=== PATIENT | female | born 1970 | race African-American/Black ===

== ENCOUNTER 2024-03-19 15:57 | Outpatient (CLI) | payer OTHER, SELFPAY ==
[2024-03-19 16:25] LABS: Alanine Aminotransferase 14 U/L (6-35); Albumin Level 4.5 g/dL (3.5-5.1); Alkaline Phosphatase 112 U/L (38-126); Aspartate Amino Transferase 21 U/L (14-36); Bilirubin,Total 0.5 mg/dL (0.2-1.3)
[2024-03-20 16:58] LABS: FSH 58.9 mIU/mL
== END 2024-03-19 15:58 | disposition home or self-care (01) ==
LOC: ANHLAB 15:59
PROVIDERS: PCP Internal Medicine; Visit Provider Obstetrics & Gynecology
DX: N95.1 Menopausal and female climacteric states (principal); Z79.899 Other long term (current) drug therapy
CPT/HCPCS: 36415; 80076; 83001

== ENCOUNTER 2024-05-11 10:47 | Outpatient (CLI) | payer OTHER, SELFPAY ==
--- NOTE | ~2024-05-11 | US_ITS ---
US pelvic complete w TV Ordering provider: Deni Eason MD History: . 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 . Comparison: None. Technique: Transabdominal and endovaginal ultrasound of the pelvis (Doppler ultrasound interrogation techniques used as needed for this exam.) FINDINGS: CERVIX: Normal. UTERUS: Measures 9.6x 5.8x 5.9 cm in length which is within normal limits and is anteverted. Fibroid s are seen with the largest measures 3.3 x 2.9 x 2.6 cm. ENDOMETRIUM: Not well seen. IUD is noted. CUL DE SAC: No free fluid. RIGHT OVARY: Not demonstrated. LEFT OVARY: Not demonstrated. ADNEXA: Normal. No mass. IMPRESSION: Multiple fibroids. Otherwise, normal pelvic ultrasound. Reviewed, dictated and finalized at location A.
== END 2024-05-11 10:48 ==
LOC: GOSHIMG 10:48
PROVIDERS: PCP Internal Medicine; Visit Provider Obstetrics & Gynecology
DX: N85.2 Hypertrophy of uterus (principal); D25.9 Leiomyoma of uterus, unspecified
CPT/HCPCS: 76830; 76856

== ENCOUNTER 2024-08-29 08:01 | Outpatient (CLI) | payer OTHER, SELFPAY ==
--- NOTE | ~2024-08-29 | MM_ITS ---
EXAMINATION: MM screening marie BI w howard HISTORY: Screening TECHNIQUE: Craniocaudal and mediolateral oblique 3-D tomosynthesis images were obtained and synthetic 2-D images were generated. CAD analysis was submitted and interpreted. COMPARISON: No prior mammogram is available for comparison at this institution. BREAST PARENCHYMAL COMPOSITION: Dense: The breasts are heterogeneously dense, which may obscure small masses FINDINGS: There is a partially obscured right periareolar breast mass in the upper inner quadrant of the right breast. No mammographic evidence for malignancy in the left breast. IMPRESSION: 1. Right breast mass. 2. Additional mammographic views and possible breast ultrasound are recommended. BI-RADS Category 0: Incomplete: Needs additional imaging evaluation. Reviewed, dictated and finalized at location B. STRIAL ANALYST IMPRESSION: 1. Right breast mass. 2. Additional mammographic views and possible breast ultrasound are recommended . BI-RADS Category 0: Incomplete: Needs additional imaging evaluation.
== END 2024-08-29 08:02 | disposition home or self-care (01) ==
LOC: MICIMG 08:02
PROVIDERS: PCP Obstetrics & Gynecology; Visit Provider Internal Medicine
DX: Z12.31 Encounter for screening mammogram for malignant neoplasm of breast (principal); N63.12 Unspecified lump in the right breast, upper inner quadrant
CPT/HCPCS: 77063; 77067

== ENCOUNTER 2025-04-12 15:28 | Outpatient (CLI) | payer OTHER, SELFPAY ==
--- NOTE | ~2025-04-12 | US_ITS ---
EXAM: PELVIC ULTRASOUND HISTORY: D25.9 - Leiomyoma of uterus, unspecified COMPARISON: 05/11/2024. FINDINGS: UTERUS: 8.9 x 4.8 x 6.0 cm. The endometrial complex is obscured by the multiple fibroids. Multiple fibroids are redemonstrated. The largest is within the posterior body of the uterus in the intramural position measuring 30 x 26 x 29 mm (unchanged from prior). An additional submucosal fibroid is identified within the mid body of the uterus measuring 26 x 24 x 28 mm. Within the fundus of the uterus, in the subserosal position is an additional fibroid measuring 29 x 2 9 x 26 mm. An additional subserosal fibroid is identified within the fundus measuring 23 x 20 x 23 mm. Intrauterine device is described and visualized on live interrogation. RIGHT OVARY: The right ovary is unremarkable in echogenicity and size measuring 2.5 x 1.5 x 3.0 cm. Dopplerable flow is identified. LEFT OVARY: Despite prolonged interrogation, the left ovary was not visualized. Trace free fluid is identified within the posterior cul-de-sac IMPRESSION: Fibroid uterus. Despite prolonged interrogation, the left ovary was not visualized. Unremarkable evaluation of the right ovary. Trace free fluid within the posterior cul-de-sac. Reviewed, dictated and finalized at location A.
--- OUTSIDE RECORDS SUMMARY | 2025-04-12 16:37 | XMS_ITS | Encounter Summary ---
Author Organization [facility] Address [address] [facility] [place] [address] Care Team Providers Care Flame Cutting Machine Operator Name Role Phone Nimisha Nichols MD Primary Care Provider +1- [phone] Encounter Details Date Type Department Care Team (Late st Contact Info) Description 08/04/2012 [facility] Social History Tobacco Use Types Packs/Day Years Used Date Smoking Tobacco: Never Smokeless Tobacco: Never Alcohol Use Standard Drinks/Week Comments Yes 0 (1 standard drink = 0.6 oz pur e alcohol) Comments No Sex and Gender Information Value Date Recorded Sex Assigned at Not on file 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
--- OUTSIDE RECORDS SUMMARY | 2025-04-12 16:37 | XMS_ITS | Referral Summary ---
Author Organization [facility] Address [address] [place] [address] Care Team Providers Care Veneer Taper Name Role Phone Jessica Puentes MD Primary Care Provider +1- [phone] Allergies Active Allergy Reactions Criticality Noted Date Comments Propranolol Stomach upset Low 11/23/2019 Medications levonorgestrel (MIRENA) IUD 1 each by intrauterine route once Active topiramate (TOPAMAX) 25 mg tablet 0 Active Ubrelvy 50 mg tablet TK 1 T PO QD PRN 0 Active omeprazole (PriLOSEC) 20 mg capsule TK 1 C PO QD 0 Active amLODIPine (NORVASC) 5 mg tablet Take 1 tablet (5 mg total) by mouth daily 30 tablet 2 Active predniSONE (DELTASONE) 20 mg tablet Take 2 tablets (40 mg) by mouth daily 10 tablet 5 Active diphenhydramine -zinc acetate (BENADRYL) cream Apply topically 3 (three) times a day as needed for itching 28.3 g 5 12/16/19 26 Active Active Problems Problem Noted Date Diagnosed Date Screening for breast cancer 08/16/2016 Overview (12/03/2022): Mammogram: [facility] [place] [facility] at [facility] Results: 08/13/16 - there is no suspicious abnormality in either breast - Bi-rad category 1 - repeat in 1 year IMO Update 07/28/2017 Otitis media 04/26/2014 Elevated blood pressure read ing without diagnosis of hypertension 04/09/2014 Depression 01/11/2014 DJD (degenerative joint disease), cervical 12/02 Vitamin D deficiency 12/01/2013 Paresthesias 11/30/2013 Allergic rhinitis 06/24/2012 Fracture of toe with malunion 06/24/2012 Overweight 06/24/2012 Overview (12/03/2022): Immunizations Immunization Administration Dates Next Due DTP 06/04/1977, 3,05/30/1972,04/11/1972,0 03/14/1972 Hep A, Unspecified 12/04/2010 Hep B, Unspecified 12/04/2010 Influenza, Trivalent, IM (MDV) 11/30/2013 MMR 04/27/1977 Measles / Rubella 01/09/1973 OPV 03/22/1982, 7,05/29/1973,05/02/1972,0 03/14/1972 Social History Tobacco Use Types Packs/Day Years Used Date Smoking Tobacco: Never Smokeless Tobacco: Never Tobacco Cessation:Counseling Given: Not Answered Alcohol Use Standard Drinks/Week Comments Never 0 (1 standard drink = 0.6 oz pur e alcohol) AUDIT-C Answer Date Recorded Frequency of Alcohol Consumption Never 07/06/2019 Average Number of Drinks Not on file 019 Frequency of Binge Drinking Not on file 06/2019 Personal Safety Answer Date Recorded Have you ever been in or are you currently in a harmful physical or emotional relationship or is someone making you feel afraid or unsafe? Denies 12/16/2024 Comments No Sex and Gender Information Value Date Recorded Sex Assigned at Not on file Legal Sex Female 10:06 AM ELECTRONICS INSTRUCTOR Gender Identity Not on file Sexual Orientation Not on file Last Filed Vital Signs Vital Sign Reading Time Taken Comments Blood Pressure 175/100 12/16/2024 11:04 AM ELECTRONICS INSTRUCTOR Pulse 78 12/16/2024 11:04 AM ELECTRONICS INSTRUCTOR Temperature 36.7 C (98.1 F) 12/16/2024 9:09 AM ELECTRONICS INSTRUCTOR Respiratory Rate 16 12/16/2024 11:04 AM ELECTRONICS INSTRUCTOR Oxygen Saturation 100% 12/16/2024 11:04 AM ELECTRONICS INSTRUCTOR Inhaled Oxygen Concentration - - Weight 72.7 kg (160 lb 4.4 oz) 12/16/2024 9:09 A M ELECTRONICS INSTRUCTOR Height 160 cm (5' 3) 12/16/2024 9:09 AM ELECTRONICS INSTRUCTOR Body Mass Index 28.39 12/16/2024 9:09 AM ELECTRONICS INSTRUCTOR Plan of Treatment Not on file Procedures Procedure Name Priority Date/Time Associated Diagnosis Comments SCREENING MAMMOGRAM BILATERAL W WALLY Schedule Routine, Read Routine (OP Routine) 05/27/2023 2:14 PM CDT Screening mammogram, encounter for HEPATITIS C ANTIBODY Routine 12/03/2022 3:33 PM ELECTRONICS INSTRUCTOR Routine screening for STI (sexually transmitted infection) PAP AND HIGH RISK HPV, REFLEX TO GENOTYPING Routine 12/03/2022 3:32 PM ELECTRONICS INSTRUCTOR Screening for malignant neoplasm of the cervix from Last 3 Months or Most Recently Relevant to Health Maintenance Results * Screening Mammogram Bilateral W Wally (05/27/2023 2:14 PM CDT) Anatomical Region Laterality Modality Breast Bilateral Mammography Narrative 05/29/2023 2:18 PM CDT Mammogram Technique: Bilateral Digital Breast Tomosynthesis, Bilateral C-view 2D Screening mammogram. Views obtained: bilateral craniocaudal and bilateral mediolateral oblique. Computer Aided Detection was performed. Mammogram Findings: The present examination has been compared to prior imaging studies performed at [facility] on 08/23/2014, 08/22/2015, 08/13/2016, 08/19/2017, 08/18/2018, 09/14/2019, 10/13/2020, 01/05/2022 and 01/15/2022. The breasts are heterogeneously dense, which may obscure small masses. There is no suspicious abnormality in either breast. There are no significant changes from the prior study. Impression: There is no mammographic evidence of malignancy. Annual screening mammography is recommended. OVERALL FINAL ASSESSMENT: BI-RADS CATEGORY 1: Negative. Procedure Note Tammy Lopez MD - 05/29/2023 Mammogram Technique: Bilateral Digital Breast Tomosynthesis, Bilateral C-view 2D Screening mammogram. Views obtained: bilateral craniocaudal and bilateral mediolateral oblique. Computer Aided Detection was performed. Mammogram Findings: The present examination has been compared to prior imaging studies performed at [facility] on 08/23/2014, 08/22/2015,08/13/2016, 08/19/2017, 08/18/2018, 09/14/2019, 10/13/2020, 01/05/2022 and01/15/2022. The breasts are heterogeneously dense, which may obscure small masses. There is no suspicious abnormality in either breast. There are no significant changes from the prior study. Impression: There is no mammographic evidence of malignancy. Annual screening mammography is recommended. OVERALL FINAL ASSESSMENT: BI-RADS CATEGORY 1: Negative. us Self Screening Mammogram IMG MAMMO PROCEDURES Fi nal Result * Hepatitis C antibody (12/03/2022 3:33 PM ELECTRONICS INSTRUCTOR) Hep C Ab Nonreactive Nonreactive [facility] Comment: Interpretive Data Nonreactive: Antibodies to HCV not detected. Does NOT exclude the possibility of recent exposure to HCV. Equivocal: Equivocal for HCV antibodies. Supplemental molecular testing will be automatically performed to determine infection status in accordance with current CDC screening recommendations. Reactive: Positive for HCV antibodies. This may represent current or past HCV infection. Supplemental molecular testing will be automatically performed to determine current infection status in accordance with current CDC screening recommendations. Interpretive data was last revised on 2020. Blood 12/03/2022 3:33 PM ELECTRONICS INSTRUCTOR 12/03/2022 7:23 PM ELECTRONICS INSTRUCTOR Irma Zendejas CNM LAB MICROBIOLOGY - GENERAL ORD ERABLES Edited Result - Final [facility] [address] Department [place] [address] * Pap and High Risk HPV, reflex to Genotyping (12/03/2022 3:32 PM ELECTRONICS INSTRUCTOR) Thin prep (Pap test) 12/03/2022 3:32 PM ELECTRONICS INSTRUCTOR 12/05/2022 11:17 AM ELECTRONICS INSTRUCTOR Narrative PATHOLOGY [facility] - 12/08/2022 11:53 AM ELECTRONICS INSTRUCTOR EPIC results best viewed via link to PDF [address] [address] Tele: Pratibha Lawson MD - [place]anteen Attendant CYTOLOGY REPORT Note to Patients: This report may contain a detailed description of human tissue sent by a health care provider to the laboratory for pathologic evaluation. The content of this report is essential for diagnosis and may provide important critical findings. This information may be unfamiliar to patients to review without a medical professional present. It is advised that the patient review this report in the presence of a health care provider who can answer questions and explain the details. Patient Name: DEBBY HICKMAN Address: [address] [place] [address] Gender: F : 1970 (Age: 51) Service: Location: [facility] : [id number] Hospital #: [id number] Patient Type: [facility] SPECIMEN Taken: 12/03/2022 Reported: 12/08/2022 Physician(s): Irma Zendejas CNM FINAL DIAGNOSIS: Specimen Type: A. - ThinPrep Pap and HPV w/ reflex Genotyping: Statement of Specimen Adequacy: Source: Cervical/Endocervical - Satisfactory for interpretation - Endocervical/Transformation zone component absent or insufficient - Case screened using computer assisted imaging technology and manually re- screened by a research pharmacist. General Categorization: - Negative for intraepithelial lesion or malignancy jat/12/08/2022 11:53CALOS Clarke (ASCP) CALOS Valencia (ASCP)Report Reviewed and Electronically Signed By CALOS Valencia (ASCP)Clerical Data Follow A; G0145 DIAGNOSIS COMMENT: Ancillary Testing: HPV High Risk Group (16, 18, 31, 33, 35, 39, 45, 51, 52, 56, 58, 59, 66 and 68) - Not Detected Reference Range: Not Detected This test was performed using the TED 4800 CLINICAL DIAGNOSIS AND HISTORY Last Menstrual Period: UNKNOWN Menstrual History: Irregular Cycles Contraceptive History: IUD This specimen has been rescreened in accordance with the [facility] Laboratory Quality Management Program. REPORT IMAGES AND/OR SCANNED DOCUMENTS ONLY VIEWABLE IN PDF FORMAT The Pap test is a screening test used to aid in the detection of cervical cancer and its precursors. It should not be the sole means by which malignant and premalignant lesions are diagnosed. Both false negative and false positive results may occur. It also has poor sensitivity for the detection of endometrial lesions and should not be used to evaluate suspected endometrial abnormalities. For these reasons it is most important to obtain Pap tests at regular intervals, as recommended by your physician or nurse practitioner. Irma Zendejas [facility] LAB CYTOLOGY ORDERABLES Final Result PATHOLOGY [facility] Laboratory Receiving [address] [address] from Last 3 Months or Most Recently Relevant to Health Maintenance Insurance Health Plotter [facility] [id number] [place] [id number] Care Teams Veneer Taper Relationship Specialty Start Date End Date Jessica Puentes MD [address] [facility] [address] [place] [address] PCP - General 12/21/16
--- OUTSIDE RECORDS SUMMARY | 2025-04-12 16:37 | XMS_ITS | Clinical Summary ---
Author Organization [email or web address] Address [address] [facility] [place] [address] Care Team Providers Care Grid Caster Name Role Phone Nimisha Nichols MD Primary Care Provider +1- [phone] Source Comments [email or web address],non-owned Affiliates and Associated Physician Practices is amultiple site organization consisting of ambulatory clinics and hospital sitesin [place], [place], [place] and [place]. This disclosure is being madepursuant to the Care Everywhere program and may not contain all information available regarding this patient. Last updated 18.[email or web address] Allergies No known active allergies Medications * Be aware that medications may not be up to date on this document. Alwaysverify current medications with the patient. Ibuprofen (ADVIL PO) Take by mouth. Active loratadine (CLARITIN) 10 MG tablet Take 1 Tab by mouth once daily. 90 Tab 1 08/04/2012 Active Multiple Vitamins-Minera ls (CENTRUM) TABS Take by mouth. Active mometasone (NASONEX) 50 MCG/ACT nasal spray [place] 2 Sprays into each nostril once daily. 1 Inhaler 3 11/30/2013 Active fluticasone propionate (FLONASE) 50 MCG/ACT nasal spray [place] 2 Sprays into each nostril once daily. 16 g 3 11/30/2013 Active vitamin D, ergocalciferol, (DRISDOL) 08938 UNITS capsule Take 1 Cap by mouth every 7 days. 4 Cap 3 12/01/2013 Active azithromycin (ZITHROMAX) 250 MG tablet Take 2 tabs on day 1, then 1 tab daily days 2 - 5 6 Tab 0 04/26/2014 Active Active Problems Problem Noted Date Diagnosed Date Screening for breast cancer 08/16/2016 Overview (07/28/2017): Mammogram: [facility] at [facility] Results: 08/13/16 - there is no suspicious abnormality in either breast - Bi-rad category 1 - repeat in 1 year IMO Update 07/28/2017 Otitis media 04/26/2014 Elevated blood pressure read ing without diagnosis of hypertension 04/09/2014 Depression 01/11/2014 DJD (degenerative joint disease), cervical 12/02 Vitamin D deficiency 12/01/2013 Paresthesias 11/30/2013 Fracture of toe with malunion 06/24/2012 Overweight 06/24/2012 Overview (09/04/2015): Allergic rhinitis 06/24/2012 Immunizations Immunization Administration Dates Next Due INFLUENZA VACCINE, TRIV. (AF LURIA, FLUZONE TRIVALENT; 6MO+) (IIV3) 11/30/2013 Family History Medical History Relation Name Comments Diabetes Father Hypertension Father Thyroid Disease Father Arthritis - Rheumatoid Maternal Grandmother Hypertension Maternal Grandmother Arthritis - Rheumatoid Mother Asthma Mother Heart Failure Mother Hypertension Mother Relation Name Status Comments Father Alive Maternal Grandfather Alive Maternal Grandmother Alive Mother Paternal Grandfather Paternal Grandmother Social History Tobacco Use Types Packs/Day Years Used Date Smoking Tobacco: Never Smokeless Tobacco: Never Alcohol Use Standard Drinks/Week Comments Yes 0 (1 standard drink = 0.6 oz pur e alcohol) Comments No Sex and Gender Information Value Date Recorded Sex Assigned at Not on file 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 Gender Identity Not on file Sexual Orientation Not on file Last Filed Vital Signs Vital Sign Reading Time Taken Comments Blood Pressure 137/94 04/09/2014 11:00 AM CDT Pulse 76 04/09/2014 11:00 AM CDT Temperature 37.1 C (98.7 F) 04/09/2014 11:00 AM CDT Respiratory Rate - - Oxygen Saturation - - Inhaled Oxygen Concentration - - Weight 72.4 kg (159 lb 9.6 oz) 04/09/2014 11:00 AM CDT Height 160 cm (5' 3) 04/09/2014 11:00 AM CDT Body Mass Index 28.27 04/09/2014 11:00 AM CDT Plan of Treatment Health Maintenance Due Date Last Done Comments COLOGUARD (AGES 45-75) - COLON CA SCREENING 1970 COLON MONITORING 1971 COLONOSCOPY - COLON CA SCREENING 1971 CT COLONOGRAPHY - COLON CA SCREENING 1970 Colorectal Cancer Screening 1971 FIT - COLON CA SCREENING 1971 FLEX SIG - COLON CA SCREENING 1971 HIV SCREENING 1986 HEPATITIS C SCREENING 12/16/1989 DTAP/TDAP/TD VACCINES (1 - Tdap) 1990 HEPATITIS B VACCINE (1 of 3 - 19+ 3-dose series) 1990 MAMMOGRAM 08/13/2018 08/13/2016 (Done Outside Per Report), 08/13/2016, 08/23/2014 (Previously completed), Additional history exists LIPID TESTING 01/11/2019 01/11/2014 PNEUMOCOCCAL VACCINE 50+ (1 of 1 - PCV) 2021 ZOSTER VACCINE (1 of 2) 2021 COVID-19 VACCINE (1 - season) 2024 DEPRESSION SCREENING 10/28/2024 INFLUENZA VACCINE (Season Ended) 2025 11/30/2013 HIB VACCINE Aged Out No longer eligi ble based on patient's age to complete this topic HPV VACCINE Aged Out No longer eligi ble based on patient's age to complete this topic MENINGOCOCCAL (Group B) VACCINE SHARED DECISION-MAKING Aged Out No longer eligible based on patient's age to complete this topic MENINGOCOCCAL GROUPS A/C/Y/W VACCINE Aged Out No longer eligible based on patient's age to complete this topic Procedures Procedure Name Priority Date/Time Associated Diagnosis Comments MAMMOGRAPHY ORDER Routine 08/13/2016 LIPID PROFILE W TCHOL/HDL Routine 01/11/2014 10:09 AM CDT Screening cholesterol level from Last 3 Months or Most Recently Relevant to Health Maintenance Results * MAMMOGRAPHY ORDER (08/13/2016) Anatomical Region Laterality Modality Mammography us Nimisha Nichols MD MAMMO ORDERABLES Final Res ult * (ABNORMAL) LIPID PROFILE W TCHOL/HDL (PO REF LAB) (01/11/2014 10:09 AM CDT) Cholesterol 173 100 - 199 mg/dL [facility] ACCOUNT BILL Triglycerides 52 0 - 149 mg/dL [facility] ACCOUNT BILL HDL Cholesterol 49 >39 mg/dL [facility] ACCOUNT BILL Comment: According to ATP-III Guidelines, HDL-C >59 mg/dL is considered a negative risk factor for CHD. VLDL Calculated 10 5 - 40 mg/dL [facility] ACCOUNT BILL LDL Calculated 114(H) 0 - 99 mg/dL [facility] ACCOUNT BILL Comment NOT NEEDED [facility] ACCOUNT BILL Comment:Ancillary determined the test is not needed Cholesterol/HDL Ratio 3.5 0.0 - 4.4 ratio units [facility] ACCOUNT BILL BLOOD SPECIMEN / Unknown 01/11/2014 10:09 AM CDT 01/11/2014 2:03 PM CDT Narrative Resulting Agency Comment [facility] [address] [facility] [phone] [place] Nimisha Nichols MD LAB - CHEMISTRY ORDERABLES Final Result [facility] ACCOUNT BILL [address] [place] [address] from Last 3 Months or Most Recently Relevant to Health Maintenance Insurance [employer] Care Teams Grid Caster Relationship Specialty Start Date End Date Nimisha Nichols MD PCP - General Family Medicine 06/11/12
--- OUTSIDE RECORDS SUMMARY | 2025-04-12 16:37 | XMS_ITS | Encounter Summary ---
Author Organization [facility] Address [address] [facility] [place] [address] Care Team Providers Care Consumer Loan Specialist Name Role Phone Nimisha Nichols MD Primary Care Provider +1- [phone] Encounter Details Date Type Department Care Team (Late st Contact Info) Description 01/01/2014 [facility] Social History Tobacco Use Types Packs/Day Years Used Date Smoking Tobacco: Never Smokeless Tobacco: Never Alcohol Use Standard Drinks/Week Comments Yes 0 (1 standard drink = 0.6 oz pur e alcohol) Comments No Sex and Gender Information Value Date Recorded Sex Assigned at Not on file 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
--- OUTSIDE RECORDS SUMMARY | 2025-04-12 16:37 | XMS_ITS | Clinical Summary ---
Author Organization [facility] Address [address] [place] [address] Care Team Providers Care Area Secretary Name Role Phone Jessica Puentes MD Primary Care Provider [phone] Allergies Active Allergy Reactions Criticality Noted Date [...] for breast cancer 08/16/2016 Overview (12/03/2022): Mammogram: [facility] [place] [facility] at [facility] Results: 08/13/16 - there is no suspicious [...] / Rubella 01/09/1973 OPV 03/22/1982, 7,05/29/1973,05/02/1972,0 03/14/1972 Surgical History Surgery Date Site/Laterality Comments INTRAUTERINE DEVICE INSERTION 03/02/2011 removed 08/25/2018 INTRAUTERINE DEVICE INSERTION 08/25/2018 Mirena COLPOSCOPY 01/01/2011 ASCUS/ HPV+ pap, CERVICAL CONE BIOPSY 10/28/1993 - 10/27/1994 DILATION AND CURETTAGE OF UTERUS Medical History Medical History Date Comments Migraines Hypertension Rheumatoid arthritis (HCC) 2007 Fibroids Family History Medical History Relation Name Comments Breast cancer Cousin Breast cancer Mother's Sister Clotting disorder Neg Hx Colon cancer Neg Hx Ovarian cancer Neg Hx Thrombophilia Neg Hx Uterine cancer Neg Hx Relation Name Status Comments Cousin Mother's Sister Social History Tobacco Use Types Packs/Day Years [...] on file Legal Sex Female 10:06 AM SETTLEMENT TECHNICIAN Gender Identity Not on file Sexual Orientation Not on file Obstetrics History Para Term AB IAB SAB Ectopic Multiple Livin g Live Births 1 1 1 Date Outcome GA Total Labor Labor/2nd/3rd Weight Sex Type Anes PTL Beata A1 A5 Name Clin 1998 Para Vag-Spo nt Last Filed Vital Signs Vital Sign Reading Time Taken Comments Blood Pressure 175/100 12/16/2024 11:04 AM SETTLEMENT TECHNICIAN Pulse 78 12/16/2024 11:04 AM SETTLEMENT TECHNICIAN Temperature 36.7 C (98.1 F) 12/16/2024 9:09 AM SETTLEMENT TECHNICIAN Respiratory Rate 16 12/16/2024 11:04 AM SETTLEMENT TECHNICIAN Oxygen Saturation 100% 12/16/2024 11:04 AM SETTLEMENT TECHNICIAN Inhaled Oxygen Concentration - - Weight 72.7 kg (160 lb 4.4 oz) 12/16/2024 9:09 A M SETTLEMENT TECHNICIAN Height 160 cm (5' 3) 12/16/2024 9:09 AM SETTLEMENT TECHNICIAN Body Mass Index 28.39 12/16/2024 9:09 AM SETTLEMENT TECHNICIAN Plan of Treatment Health Maintenance Due Date Last Done Comments Colon Cancer Screening-Colonoscopy 1970 Depression Screening 1970 DTaP/Tdap/Td Vaccine (6 - Tdap) 05/29/2017 05/28/2017, 06/04/1977, 05/29/1973, Additional history exists Cervical Cancer Screening 12/03/20232022, 07/24/2021, 07/18/2020 Regular Well Visit/Exam 18-64 12/03/2023 12/03/2022, 07/24/2021, 07/06/2019 Zoster Vaccine (2 of 2) 01/01/2024 11/06/2023 Breast Cancer Screening-Mammogram 05/27/2024 05/27/2023, 01/05/2022, 10/13/2020, Additional history exists Covid-19 Vaccine (3 - season) 2024 02/06/2021, 02/05/2021 Influenza Vaccine (Season Ended) 2025 11/06/2023, 08/28/2022, 08/04/2021, Additional history exists Hepatitis B Screening Completed 12/04/2010 Hepatitis C Screening Completed 12/03/2022 Pneumococcal vaccine <65 Aged Out No longer eligible based on patient's age to complete this topic Procedures Procedure Name Priority Date/Time Associated Diagnosis Comments SCREENING MAMMOGRAM BILATERAL W WALLY Schedule Routine, Read Routine (OP Routine) 05/27/2023 2:14 PM CDT Screening mammogram, encounter for HEPATITIS C ANTIBODY Routine 12/03/2022 3:33 PM SETTLEMENT TECHNICIAN Routine screening for STI (sexually transmitted infection) PAP AND HIGH RISK HPV, REFLEX TO GENOTYPING Routine 12/03/2022 3:32 PM SETTLEMENT TECHNICIAN Screening for malignant neoplasm of the cervix [...] compared to prior imaging studies performed at [facility] on 08/23/2014, 08/22/2015, 08/13/2016, 08/19/2017, 08/18/2018, 09/14/2019, [...] compared to prior imaging studies performed at [facility] on 08/23/2014, 08/22/2015,08/13/2016, 08/19/2017, 08/18/2018, 09/14/2019, 10/13/2020, 01/05/2022 and01/15/2022. The breasts are heterogeneously dense, which may obscure small masses. There is no suspicious abnormality in either breast. There are no significant changes from the prior study. Impression: There is no mammographic evidence of malignancy. Annual screening mammography is recommended. OVERALL FINAL ASSESSMENT: BI-RADS CATEGORY 1: Negative. Self Screening Mammogram IMG MAMMO PROCEDURES Fi nal Result * Hepatitis C antibody (12/03/2022 3:33 PM SETTLEMENT TECHNICIAN) Hep C Ab Nonreactive Nonreactive [facility] Comment: Interpretive Data Nonreactive: Antibodies to [...] revised on 2020. Blood 12/03/2022 3:33 PM SETTLEMENT TECHNICIAN 12/03/2022 7:23 PM SETTLEMENT TECHNICIAN Irma Zendejas CNM LAB MICROBIOLOGY - GENERAL ORD ERABLES Edited Result - [facility] [address] [place] [address] * Pap and High Risk HPV, reflex to Genotyping (12/03/2022 3:32 PM SETTLEMENT TECHNICIAN) Thin prep (Pap test) 12/03/2022 3:32 PM SETTLEMENT TECHNICIAN 12/05/2022 11:17 AM SETTLEMENT TECHNICIAN Narrative PATHOLOGY [facility] - 12/08/2022 11:53 AM SETTLEMENT TECHNICIAN EPIC results best viewed via link to PDF [place] [id number] [facility], [place], [place] [address] Tele: Pratibha Lawson MD - Settlement Technician CYTOLOGY REPORT Note to Patients: This report [...] the details. Patient Name: DEBBY HICKMAN Address: [address] [place] [address] Gender: F : 1970 (Age: 51) Service: Location: N : [id number] Hospital #: [id number] Patient Type: [facility] SPECIMEN Taken: 12/03/2022 Reported: 12/08/2022 Physician(s): Irma Zendejas CNM FINAL DIAGNOSIS: Specimen Type: A. - ThinPrep Pap and HPV w/ reflex Genotyping: Statement of Specimen Adequacy: Source: Cervical/Endocervical - Satisfactory for interpretation - Endocervical/Transformation zone component absent or insufficient - Case screened using computer assisted imaging technology and manually re- screened by a wound/ostomy nurse. General Categorization: - Negative for intraepithelial lesion [...] has been rescreened in accordance with the [facility] Laboratory Quality Management Program. REPORT IMAGES [...] your physician or nurse practitioner. Irma Zendejas [facility] LAB CYTOLOGY ORDERABLES Final Result PATHOLOGY [facility] Laboratory Receiving [address] [place], [place] [id number] from Last 3 Months or Most Recently Relevant to Health Maintenance Insurance [employer] [facility] [employer] [id number] [employer] [id number] [employer] [id number] Care Teams Area Secretary Relationship Specialty Start Date End Date Jessica Puentes MD [address] [facility] [address] [place] [address] PCP - General 12/21/16
--- OUTSIDE RECORDS SUMMARY | 2025-04-12 16:37 | XMS_ITS | Clinical Summary ---
Author Organization [facility] Address [address] [place] [address] Care Team Providers Care Door Paneler Name Role Phone Jessica Puentes MD Primary Care Provider [phone] Allergies Active Allergy Reactions Criticality Noted Date Comments Propranolol GI Upset 11/23/2019 Medications levonorgestrel 20 MCG/24HR IUD 1 each by Intrauterine route. Active ORAL APPLIANCEIndica tions:Obstructi ve sleep apnea (adult) (pediatric) Place 1 Device onto teeth nightly at bedtime. 1 Device 1 9 Active topiramate 25 MG tablet TK 1 T PO HS FOR 1 WK THEN INCREASE TO BID THEREAFTER. STOP PROPRANOLOL DUE TO DYSPNEA 0 Active Active Problems No known active problems Family History Medical History Relation Comments Diabetes Father Heart Disease Father Hypertension Mother Relation Status Comments Father Mother Social History Tobacco Use Types Packs/Day Years Used Date Smoking Tobacco: Never Smokeless Tobacco: Never Comments Unknown Sex and Gender Information Value Date Recorded Sex Assigned at Not on file Legal Sex Female 5:54 PM FISHERY DIVISION CHIEF Gender Identity Not on file Sexual Orientation Not on file Last Filed Vital Signs Vital Sign Reading Time Taken Comments Blood Pressure 128/74 11/23/2019 4:06 PM FISHERY DIVISION CHIEF Pulse 83 11/23/2019 4:06 PM FISHERY DIVISION CHIEF Temperature 36.7 C (98.1 F) 11/23/2019 4:06 PM FISHERY DIVISION CHIEF Respiratory Rate 16 11/23/2019 4:06 PM FISHERY DIVISION CHIEF Oxygen Saturation 99% 11/23/2019 4:06 PM FISHERY DIVISION CHIEF Inhaled Oxygen Concentration - - Weight 72.1 kg (159 lb) 11/23/2019 4:06 PM FISHERY DIVISION CHIEF Height 160 cm (5' 3) 11/23/2019 4:06 PM FISHERY DIVISION CHIEF Body Mass Index 28.17 11/23/2019 4:06 PM FISHERY DIVISION CHIEF Plan of Treatment Health Maintenance Due Date Last Done Comments Cervical Cancer Screening Pa p Smear (Age 30 to 64) Every 3 Years 1970 Colorectal Cancer Screening Colonoscopy (10 Years) 1971 Annual Physical 1974 Hepatitis C 1989 DTaP, Tdap and Td Vaccines ( 1 - Tdap) 1990 Cervical Cancer Screening Pa p with HPV Testing (Age 30 to 64) Every 5 Years 2001 Cervical Cancer Screening with HPV 2001 Hepatitis B Vaccines (2 of 3 - 19+ 3-dose series) 01/01/2011 12/04/2010 Mammogram Screening 2011 Pneumococcal Vaccine: 50+ Ye ars (1 of 1 - PCV) 2021 Zoster Vaccines (1 of 2) 2021 COVID-19 Vaccine (1 - 2023-2 5 season) 2024 Meningococcal B Vaccine Aged Out No l onger eligible based on patient's age to complete this topic Meningococcal Vaccine Aged Out No omer elmer eligible based on patient's age to complete this topic RSV Immunizations Under 20 Months Aged Out No longer eligible based on patient's age to complete this topic Insurance 5 CUPS and some sugar [facility] Care Teams Door Paneler Relationship Specialty Start Date End Date Jessica Puentes MD PCP - General INTERNAL MEDICINE 07/28/19
--- OUTSIDE RECORDS SUMMARY | 2025-04-12 16:37 | XMS_ITS | Encounter Summary ---
Author Organization [facility] Address [address] [facility] [place] [address] Care Team Providers Care Pipeline Gang Supervisor Name Role Phone Nimisha Nichols MD Primary Care Provider [phone] Encounter Details Date Type Department Care Team (Late st Contact Info) Description 12/08/2013 [facility] Social History Tobacco Use Types Packs/Day Years Used Date Smoking Tobacco: Never Smokeless Tobacco: Never Alcohol Use Standard Drinks/Week Comments Yes 0 (1 standard drink = 0.6 oz pur e alcohol) Comments No Sex and Gender Information Value Date Recorded Sex Assigned at Not on file Legal Sex Female 6:19 AM PROMOTIONAL MARKETING AGENT Gender Identity Not on file Sexual Orientation Not on file documented as of this encounter Plan of Treatment Not on file documented as of this encounter Visit Diagnoses Not on filedocumented in this encounter Care Teams Pipeline Gang Supervisor Relationship Specialty Start Date End Date Nimisha Nichols MD PCP - General Family Medicine 06/11/12 documented as of this encounter
--- OUTSIDE RECORDS SUMMARY | 2025-04-12 16:37 | XMS_ITS | Encounter Summary ---
Author Organization [facility] Address [address] [place] [address] Care Team Providers Care Dielectric Tester Name Role Phone Nimisha Nichols MD Primary Care Provider [phone] Encounter Details Date Type Department Care Team (Late st Contact Info) Description 12/22/2013 [facility] Social History Tobacco Use Types Packs/Day Years Used Date Smoking Tobacco: Never Smokeless Tobacco: Never Alcohol Use Standard Drinks/Week Comments Yes 0 (1 standard drink = 0.6 oz pur e alcohol) Comments No Sex and Gender Information Value Date Recorded Sex Assigned at Not on file Legal Sex Female 6:19 AM CLAM SHOVEL OPERATOR Gender Identity Not on file Sexual Orientation Not on file documented as of this encounter Plan of Treatment Not on file documented as of this encounter Visit Diagnoses Not on filedocumented in this encounter Care Teams Dielectric Tester Relationship Specialty Start Date End Date Nimisha Nichols MD PCP - General Family Medicine 06/11/12 documented as of this encounter
== END 2025-04-12 15:29 | disposition home or self-care (01) ==
PROVIDERS: PCP Internal Medicine; Visit Provider Obstetrics & Gynecology
DX: D25.9 Leiomyoma of uterus, unspecified (principal)
CPT/HCPCS: 76830; 76856

== ENCOUNTER 2025-09-13 14:38 | Outpatient (CLI) | payer OTHER, SELFPAY ==
--- NOTE | ~2025-09-13 | MM_ITS ---
EXAMINATION: MM screening marie BI w howard HISTORY: Screening TECHNIQUE: Craniocaudal and mediolateral oblique 3-D tomosynthesis images were obtained and synthetic 2-D images were generated. CAD analysis was submitted and interpreted. COMPARISON: Comparison to multiple prior studies sequentially, with oldest reviewed study dated , 01/05/2022 BREAST PARENCHYMAL COMPOSITION: Not Dense: There are scattered areas of fibroglandular density. FINDINGS: There is no evidence of suspicious mass, calcification, or architectural distortion to suggest malignancy in either breast. IMPRESSION: 1. No mammographic evidence of malignancy. 2. Recommend routine screening mammography in one year. BI-RADS Category 1: Negative Reviewed, dictated and finalized at location B. OOD SERVICE TEAM MEMBER
== END 2025-09-13 14:39 | disposition home or self-care (01) ==
LOC: MICIMG 14:39
PROVIDERS: PCP Internal Medicine; Visit Provider Internal Medicine
DX: Z12.31 Encounter for screening mammogram for malignant neoplasm of breast (principal)
CPT/HCPCS: 77063; 77067